=== PATIENT | female | born 1990 | race Caucasian/White ===

== ENCOUNTER 2022-02-25 22:36 | Inpatient (IN) | payer OTHER ==
[2022-02-26] MEDS ORDERED: Lactated Ringers 1,000 ML IV ONE ×2 (00:27→06:09)
[2022-02-26] MEDS ORDERED: Zofran 4 MG/2 ML VIAL IV PRN (00:28)
[2022-02-26] MEDS ORDERED: STADOL 2 MG IV PRN (00:28)
[2022-02-26 00:58] LABS: Amphetamine,Urine NEGATIVE (NEGATIVE); Barbiturate,Urine NEGATIVE (NEGATIVE); Benzodiazepine,Urine NEGATIVE (NEGATIVE); Cocaine,Urine NEGATIVE (NEGATIVE); Methadone,Urine NEGATIVE (NEGATIVE); Opiate,Urine NEGATIVE (NEGATIVE); PCP,Urine NEGATIVE (NEGATIVE); THC,Urine NEGATIVE (NEGATIVE)
[2022-02-26 01:12] LABS: Absolute Neutrophil Ct (ANC) 8.29 x10^3/uL (1.4-6.9); Basophil (Absolute #) 0.03 x10^3/uL (0-0.4); Eosinophil % 1.1 % (0.00-5.0); Eosinophil (Absolute #) 0.12 x10^3/uL (0-0.5); Hematocrit 33.6 % (35-47); Hemoglobin 10.5 g/dL (12.0-16.0); Lymphocyte (Absolute #) 1.57 x10^3/uL (1.0-4.6); Lymphocytes % 14.7 % (24.0-44.0); Mean Cell Volume 79.4 fL (78-100); Mean Corpuscular Hemoglobin 24.8 pg (26-32); Mean Corpuscular Hgb Concent. 31.3 g/dL (32-36); Mean Platelet Volume 10.7 fL (7.5-11.0); Monocyte (Absolute #) 0.54 x10^3/uL (0.0-1.3); Neutrophil % 77.5 % (36.0-66.0); Platelet Count 201 x10^3/uL (150-450); Red Blood Count 4.23 x10^6/uL (4.1-5.4); Red Cell Distribution Width 17.2 % (11.5-14.0); White Blood Count 10.7 x10^3/uL (4.0-10.5)
[2022-02-26 01:16] LABS: Epithelial Cells RARE /HPF (FEW); Mucus SLIGHT /HPF (NEGATIVE)
[2022-02-26 01:19] LABS: Appearance SLIGHTLY CLOUDY (CLEAR); Bilirubin NEGATIVE (NEGATIVE); Dipstick done @ ? MAIN LAB; Glucose NEGATIVE (NEGATIVE); Ketones NEGATIVE (NEGATIVE); Nitrite NEGATIVE (NEGATIVE); Protein,Urine Dip NEGATIVE (Negative); RBC MODERATE Ery/ul (0-5); Specific Gravity 1.025 (1.005-1.025); Urobilinogen 0.2 mg/dL (0-1)
[2022-02-26 01:20] LABS: Bacteria NONE SEEN /HPF (NEGATIVE); Urine Cultured Indicated? YES
[2022-02-26 02:04] LABS: ABO TYPING O; Antibody Screen NEGATIVE (NEGATIVE); RH TYPING POSITIVE
[2022-02-26] MEDS ORDERED: XYLOCAINE 1% HCL 20 ML MDV IJ PRN (02:04)
[2022-02-26] MEDS ORDERED: OMNIPEN 2 GM*** 2 G in Sodium Chloride 100ML MINI-BAG PLUS 100 ML IV ONE (02:04)
[2022-02-26] MEDS ORDERED: OMNIPEN 2 GM ONE (02:08)
[2022-02-26] MEDS ORDERED: Sodium Chloride 100ML MINI-BAG PLUS 100 ML IV ONE ×2 (02:08→05:57)
[2022-02-26] MEDS: Lactated Ringers 1,000 ML IV SCH ×2 (02:22→11:25)
[2022-02-26] MEDS ORDERED: OMNIPEN 1 GM ONE (05:54)
[2022-02-26] MEDS ORDERED: PITOCIN 30 UNITS/ LR 500 ML 500 ML IV ONE (05:58)
[2022-02-26] MEDS ORDERED: BRETHINE 1 MG/ML SQ PRN (06:01)
[2022-02-26] MEDS ORDERED: Ephedrine Sulfate 50 MG/ML IV PRN (06:02)
[2022-02-26] MEDS ORDERED: FENTANYL 2 MCG-BUPIV 0.125%-NS 250 ML Epidur 250 ML EPIDURAL SCH (06:15)
[2022-02-26] MEDS ORDERED: PITOCIN 30 UNITS/ LR 500 ML 30 UNITS/500 ML PLAST..BAG IV SCH (06:30)
[2022-02-26] MEDS: OMNIPEN 1 GM*** 1 GM in Sodium Chloride 100ML MINI-BAG PLUS 100 ML IV SCH ×2 (07:09→11:24)
[2022-02-26] MEDS ORDERED: MOTRIN 400 MG PO PRN (12:11)
[2022-02-26] MEDS ORDERED: TUCKS TP PRN (12:11)
[2022-02-26] MEDS ORDERED: Dermoplast Spray TP PRN (12:11)
[2022-02-26] MEDS ORDERED: Mylicon 80MG PO PRN (12:11)
[2022-02-26] MEDS ORDERED: LANSINOH 40 GM TOP PRN (12:11)
[2022-02-26] MEDS: TYLENOL EXTRA STRENGTH 500 MG PO PRN (17:52)
[2022-02-26] MEDS: Docusate Sodium 100 MG PO SCH (20:27)
[2022-02-27 05:42] LABS: Basophil (Absolute #) 0.04 x10^3/uL (0-0.4); Eosinophil % 0.6 % (0.00-5.0); Eosinophil (Absolute #) 0.08 x10^3/uL (0-0.5); Hematocrit 31.4 % (35-47); Mean Cell Volume 79.9 fL (78-100); Mean Corpuscular Hemoglobin 25.4 pg (26-32); Mean Corpuscular Hgb Concent. 31.8 g/dL (32-36); Mean Platelet Volume 10.5 fL (7.5-11.0); Monocyte (Absolute #) 0.72 x10^3/uL (0.0-1.3); Monocytes % 5.4 % (0.0-12.0); Neutrophil % 80.6 % (36.0-66.0); Platelet Count 154 x10^3/uL (150-450); Red Blood Count 3.93 x10^6/uL (4.1-5.4); Red Cell Distribution Width 17.3 % (11.5-14.0); White Blood Count 13.3 x10^3/uL (4.0-10.5)
[2022-02-27] MEDS: TYLENOL EXTRA STRENGTH 500 MG PO PRN (07:58)
--- NOTE | 2022-02-27 09:19 | PCM.NOTE ---
Date and Time: 02/27/22917 Subjective Assessment: PPD 1 PT RESTING IN BED AND DOING WELL VSS AFEBRILE ABD; SOFT UTERUS; FIRM LOCHIA; MILD A/P SP PPD 1 DC HOME TOMORROW FU OFFICE IN 3 WKS OBJECTIVE DATA Vital Signs: Vital Signs - 24 hr Temp Pulse Resp BP BP Pulse Ox 02/27/22 08:05 97.8 F 80 16 116/59 97 02/27/22 02:00 97.6 F 95 H 18 126/75 97 02/26/22 15:45 99 H 18 133/79 98 02/26/22 14:45 99 H 18 133/79 98 02/26/22 13:15 86 18 132/83 98 02/26/22 12:45 84 18 116/65 98 02/26/22 12:30 79 18 107/59 98 02/26/22 12:15 84 18 111/58 98 02/26/22 12:00 95 H 18 108/54 98 02/26/22 11:40 24 02/26/22 11:30 24 02/26/22 11:15 88 22 133/88 98 02/26/22 11:00 88 22 118/70 98 02/26/22 10:45 90 20 129/70 98 02/26/22 10:30 88 18 119/77 98 02/26/22 10:15 88 18 120/80 98 02/26/22 10:00 86 18 120/80 98 02/26/22 09:45 78 18 98/53 98 02/26/22 09:30 81 18 99/54 98 Pain Assessment - Last Documented Pain Intensity [Bilateral 3 Anterior] Pain Intensity 3 Pain Scale Used 0-10 Pain Scale Intake and Output: Intake & Output 02/24/22 02/25/22 02/26/22 02/27/22 11:59 11:59 11:59 11:59 Intake Total 2125 1846 Balance 2126 1846 Weight 125.645 kg Lab Results: Lab Results-Last 24 Hours 02/27/22 Range/Units 05:20 WBC 13.3 H (4.0-10.5) x10^3/uL RBC 3.93 L (4.1-5.4) x10^6/uL Hgb 10.0 L (12.0-16.0) g/dL Hct 31.4 L (35-47) % MCV 79.9 (78-100) fL MCH 25.4 L (26-32) pg MCHC 31.8 L (32-36) g/dL RDW 17.3 H (11.5-14.0) % Plt Count 154 (150-450) x10^3/uL MPV 10.5 (7.5-11.0) fL Gran % 80.6 H (36.0-66.0) % Immature Gran % (Auto) 1.1 H (0.00-0.4) % Nucleat RBC Rel Count 0.0 (0.00-0.1) % Eos # (Auto) 0.08 (0-0.5) x10^3/uL Immature Gran # (Auto) 0.15 H (0.00-0.03) x10^3u/L Absolute Lymphs (auto) 1.60 (1.0-4.6) x10^3/uL Absolute Monos (auto) 0.72 (0.0-1.3) x10^3/uL Absolute Nucleated RBC 0.00 (0.00-0.01) x10^3u/L Lymphocytes % 12.0 L (24.0-44.0) % Monocytes % 5.4 (0.0-12.0) % Eosinophils % 0.6 (0.00-5.0) % Basophils % 0.3 (0.0-0.4) % Absolute Granulocytes 10.70 H (1.4-6.9) x10^3/uL Basophils # 0.04 (0-0.4) x10^3/uL Assessment/Plan (1) Vaginal delivery Current Visit: Yes Status: Acute Code(s): O80 - ENCOUNTER FOR FULL-TERM UNCOMPLICATED DELIVERY
[2022-02-27 09:33] LABS: HBsAg Screen Negative (Negative)
[2022-02-27] MEDS: Docusate Sodium 100 MG PO SCH ×2 (09:41→21:50)
[2022-02-27] MEDS ORDERED: FERREX 150 PO SCH (10:00)
[2022-02-27] MEDS ORDERED: Adacel Vial IM ONE (10:00)
[2022-02-27 21:21] VITALS: O2SAT 98
[2022-02-28] MEDS: TYLENOL EXTRA STRENGTH 500 MG PO PRN (04:12)
--- NOTE | 2022-02-28 07:24 | PCM.NOTE ---
Date and Time: 02/28/22722 Subjective Assessment: PPD 2 PT RESTING IN BED AND DOING WELL. VSS AFEBRILE ABD; SOFT UTERUS; FIRM LOCHIA; MILD A/P SP PPD 2 DC HOME TODAY FU OFFICE 3 WKS OBJECTIVE DATA Vital Signs: Vital Signs - 24 hr Temp Pulse Resp BP Pulse Ox 02/28/22 04:00 97.4 F 84 20 122/77 98 02/27/22 20:00 98.2 F 95 H 20 126/75 98 02/27/22 14:00 98.7 F 87 20 130/82 99 02/27/22 08:05 97.8 F 80 16 116/59 97 Pain Assessment - Last Documented Pain Intensity [Bilateral 0 Anterior] Pain Intensity 3 Pain Scale Used 0-10 Pain Scale Intake and Output: Intake & Output 02/25/22 02/26/22 02/27/22 02/28/22 11:59 11:59 11:59 11:59 Intake Total 2126 1846 350 Balance 2126 1846 350 Weight 125.645 kg Lab Results: Lab Results-Last 24 Hours 02/26/22 Range/Units 00:55 Hep Bs Antigen Negative (Negative) Assessment/Plan (1) Vaginal delivery Current Visit: Yes Status: Acute Code(s): O80 - ENCOUNTER FOR FULL-TERM UNCOMPLICATED DELIVERY
--- NOTE | 2022-02-28 07:33 | PCM.DS ---
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 DURING PERIOD DID WELL AND NOW STABLE FOR DISCHARGE ALL QUESTIONS ANSWERED TO HER SATISFACTION AND WAS ADVISED TO FU IN OFFICE IN 3 WKS. STABLE HGB LEVEL. - Vitals & Intake/Output Vital Signs: Vital Signs Temperature 97.4 F 02/28/22 04:00 Pulse Rate 84 02/28/22 04:00 Respiratory Rate 20 02/28/22 04:00 Blood Pressure 122/77 02/28/22 04:00 O2 Sat by Pulse Oximetry 98 02/28/22 04:00 Intake & Output: Intake & Output 02/25/22 02/26/22 02/27/22 02/28/22 11:59 11:59 11:59 11:59 Intake Total 2126 1846 350 Balance 2126 1846 350 Weight 125.645 kg - Lab Result Diagrams: 02/27/22 05:20 Lab Results-Last 24 Hrs: Lab Results-Last 24 Hours 02/26/22 Range/Units 00:55 Hep Bs Antigen Negative (Negative) Micro Results-Entire Visit: Microbiology 02/25/22 23:05 Urine Culture - Final Urine, Void MIXED POLO; 3 OR MORE TYPES. NO PREDOMINANT ORGANISM. NO FURTHER WORKUP. PLEASE RESUBMIT IF CLINICALLY INDICATED. Final Diagnosis/Problem List - Final Discharge Diagnosis/Problem (1) Vaginal delivery Current Visit: Yes Status: Acute Code(s): O80 - ENCOUNTER FOR FULL-TERM UNCOMPLICATED DELIVERY - Discharge Disposition: Home, Self-Care Condition: Stable Prescriptions: No Action Vits W-Ca,Fe,FA(<1Mg) [] 1 ea DAILY Fluticasone Propion/Salmeterol [Fluticasone-Salmeterol 100-50] 1 puff IH BID Follow up with: MARCO A CARMONA, SIZE MARKER [Primary Care Provider] - SHERRIE BLOCK DO [ACTIVE STAFF] - 3 weeks
[2022-02-28 10:11] VITALS: BP 132/78; PULSE 87
== END 2022-02-28 11:05 | disposition home or self-care (01) | DRG 807 ==
LOC: OB 22:36 → OBSVTOIN 02-26 01:45 → OB 02-26 01:50 → MED SURG 02-26 20:18
PROVIDERS: ADMIT Obstetrics & Gynecology; ATTEND Obstetrics & Gynecology
PROC: 10E0XZZ Delivery of Products of Conception, External Approach (ICD-10-PCS; principal; 2022-02-26)
DX: O80 Encounter for full-term uncomplicated delivery (principal); Z37.0 Single live birth; Z3A.37 37 weeks gestation of pregnancy
CPT/HCPCS: 36415; 59409; 80307; 81015; 84112; 85025; 86850; 86900; 86901; 87086; 87340; 90471; 90715; G0378; J0290; J0595; J2405; J2590; A9270-GY

== ENCOUNTER 2024-09-27 10:50 | Emergency (ER) | payer OTHER, SELFPAY ==
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
[2024-09-27 11:04] VITALS: TEMP 98
[2024-09-27 12:16] VITALS: RESP 19
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
[2024-09-27 12:41] VITALS: BP 107/68; PULSE 81; O2SAT 99
== END 2024-09-27 12:46 | disposition home or self-care (01) ==
LOC: ED 10:50
DX: S16.1XXA Strain of muscle, fascia and tendon at neck level, initial encounter (principal); S10.91XA Abrasion of unspecified part of neck, initial encounter; V47.5XXA Car driver injured in collision with fixed or stationary object in traffic accident, initial encounter; Z79.899 Other long term (current) drug therapy
CPT/HCPCS: 72125; 99283; 99285